=== PATIENT | female | born 1940 | race Caucasian/White ===

== ENCOUNTER 2020-05-03 23:52 | Emergency (ER) | payer MEDICARE ==
[~2020-05-03] VITALS: Ht 162.6 cm; Wt 65.9 kg
[2020-05-04 00:51] LABS: BASOPHILS # (AUTO) 0.1 X10'3 (0-0.2); BASOPHILS % (AUTO) 1.1 % (0-1); CLARITY,URINE SLIGHTLY CLOUDY (Clear); COLOR,URINE YELLOW (Yellow); EOSINOPHILS # (AUTO) 0.1 X10'3 (0-0.9); EOSINOPHILS % (AUTO) 1.8 % (0-6); GLUCOSE, URINE NEGATIVE (Neg); HEMATOCRIT 41.6 % (35.0-45.0); HEMOGLOBIN 14.5 g/dl (12.0-16.0); KETONES,URINE 15 mg/dl (Neg); LEUKOCYTE ESTERASE ,URINE SMALL (Neg); LYMPHOCYTES # (AUTO) 0.8 X10'3 (1.1-4.8); LYMPHOCYTES % (AUTO) 17.2 % (21-51); MEAN CORPUSCULAR HEMOGLOBIN 33.1 PG (27.0-31.0); MEAN CORPUSCULAR HGB CONC 34.8 g/dL (33.0-36.5); MEAN CORPUSCULAR VOLUME 95.3 FL (78-98); MEAN PLATELET VOLUME 9.7 FL (7.4-10.4); MONOCYTES # (AUTO) 0.5 X10'3 (0-0.9); MONOCYTES % (AUTO) 11.4 % (2-12); NEUTROPHILS # (AUTO) 3.1 X10'3 (1.8-7.7); NEUTROPHILS % (AUTO) 68.5 % (42-75); NITRITES, URINE NEGATIVE (Neg); OCCULT BLOOD,URINE NEGATIVE (Neg); PLATELET COUNT 197 X10'3 (140-440); PROTEIN,URINE NEGATIVE (Neg); RED BLOOD COUNT 4.36 X10'6 (4.20-5.60); RED CELL DISTRIBUTION WIDTH 12.3 % (11.5-14.5); WHITE BLOOD COUNT 4.5 X10'3 (4.5-11.0)
[2020-05-04 01:00] LABS: ALANINE AMINOTRANSFERASE 24 U/L (12-78); ALBUMIN 4.2 G/DL (3.4-5.0); ALBUMIN/GLOBULIN RATIO 1.1 (1.1-1.5); ALKALINE PHOSPHATASE 90 IU/L (46-116); ANION GAP 11 (8-16); ASPARTATE AMINO TRANSFERASE 24 U/L (10-37); BILIRUBIN,TOTAL 0.8 MG/DL (0.1-1.0); BLOOD UREA NITROGEN 17 MG/DL (7-18); BUN/CREATININE RATIO 19.3 (6.6-38.0); CALCIUM 9.7 MG/DL (8.5-10.1); CHLORIDE 104 MMOL/L (99-107); CREATININE 0.88 MG/DL (0.40-0.90); GLUCOSE 118 MG/DL (70-104); POTASSIUM 3.6 MMOL/L (3.5-5.1); SODIUM 141 MMOL/L (135-145); TOTAL CARBON DIOXIDE 26.3 MMOL/L (24-32); TOTAL PROTEIN 8.1 G/DL (6.4-8.2); eGFR 62 ML/MIN
--- NOTE | 2020-05-04 01:06 | NUR ---
pedrohbor: [facility] [id number].
[2020-05-04 01:08] LABS: UA COLLECTION TYPE CLN CATCH MIDSTREAM
[2020-05-04 01:12] LABS: AMORPHOUS URATES 1+; BACTERIA,URINE FEW /HPF (Neg); MUCUS STRANDS MODERATE /LPF (Neg); RBC,URINE 0-2 /HPF (0-2); SQUAMOUS EPITHELIAL CELL,UR MODERATE /LPF (FEW)
[2020-05-04] MEDS ORDERED: cephalexin 250mg capsule PO ONE (01:15)
[2020-05-04] MEDS ORDERED: ondansetron 4mg rapidly disintigrating tab PO ONE (01:15)
[2020-05-04 01:46] LABS: ETHANOL < 0.010 GM/DL (0.0-0.010)
--- NOTE | 2020-05-04 02:19 | NUR ---
WENT IN TO ASSESS PATIENT. PT APPEARS ANGRY
--- NOTE | 2020-05-04 02:25 | NUR ---
patient appears to be confused. she appears to live at home, alone and is concerned about her animals being cared for. she keeps repeating that she needs to get home to see her brothers who are in the . sometimes her story changes to her children. pt unable to name the president or year. able to commicate that it is election time, but unable to state candidates. pt mood goes from tearful to angry and back again. pt angry that she has been "experimented on". she expresses anger that she got "a full work up". pt seems to think staff is trying to make money off of her. patient is now emptying purse, stating that she is missing 1000 dollars. as patient is emptying purse, random items including a house phone with the battery hanging out, one loose sock, and multiple papers. pt states that she has a current job but cannot name it. kathy ortiz are sons.
--- NOTE | 2020-05-04 03:47 | NUR ---
Gage vogel in ED - 05/04/20 at 0349 by ROXANNE Spoke to patient's mother Citlaly. she stated that her daughter has a severe drinking problem and needs help.
[2020-05-04 04:46] LABS: URINE AMPHETAMINE SCREEN NEGATIVE (Neg); URINE BARBITUATE SCREEN NEGATIVE (Neg); URINE BENZODIAZEPINES SCREEN NEGATIVE (Neg); URINE CANNABINOID SCREEN NEGATIVE (Neg); URINE COCAINE SCREEN NEGATIVE (Neg); URINE METHADONE SCREEN NEGATIVE (Neg); URINE OPIATE SCREEN NEGATIVE (Neg); URINE PHENCYCLIDINE SCREEN NEGATIVE (Neg)
[2020-05-04 07:00] VITALS: BP 147/74
--- NOTE | 2020-05-04 07:24 | NUR ---
PT IS AWAKE, WAS GIVEN COFFEE AND OJ. PT IS NON CONFRONTATIONAL AND COOPERATIVE. PT IS TALKATIVE, STATING THAT SHE HAD HER SHOES AND MONEY STOLLEN FROM HER; HOWEVER, SHE CHANGES HER STORY EACH TIME FROM $300.00 STOLLEN TO $1,500.00 STOLLEN FROM HER "RECENTY". PT ALSO STATES THAT HER NEW SHOES WERE TAKEN FROM HER WHEN PER THE LANDSCAPE AND YARDWORK LABORER RN STATES THAT SHE HAD ONLY WHAT SHE IS WEARING WITH HER UPON ADMISSION. AWAITING [facility] TO EVALUATE PT THIS AM.
--- NOTE | 2020-05-04 07:55 | NUR ---
SAFETY BREAKFAST DELIVERED TO PT'S BEDSIDE
--- NOTE | 2020-05-04 09:03 | NUR ---
PACKET SENT TO [facility]
--- NOTE | 2020-05-04 09:30 | NUR ---
PT SITTING ON CHAIR IN ROOM. WAITING ON MENTAL HEALTH
[2020-05-04] MEDS ORDERED: cephalexin 500mg capsule PO SCH (10:00)
--- NOTE | 2020-05-04 10:19 | NUR ---
pt has moments of becoming loud and verbally agressive and demanding while pointing her finger in my face. pt is confused about where she is and what is going on and has her own story in her head because she keeps referencing another doctor somewhere and how she had been treated bad and how people have lied to her and then goes from talking about this into talking about actors and movies and how "they can't keep me from watching the movie or put me in the back" and then mentioned lifting a saddle and putting salt under it and watching the horse squirm. pt is breathing well and walking well. no obvious physical issues. sitter at bedside with pt and talking with her and redirecting her. waiting on eval.
[2020-05-04] MEDS ORDERED: CEPH-572 PO (11:10)
== END 2020-05-04 11:17 | disposition home or self-care (01) ==
LOC: ER 23:52
DX: N39.0 Urinary tract infection, site not specified (principal); R41.0 Disorientation, unspecified; Z60.2 Problems related to living alone; Z79.899 Other long term (current) drug therapy
CPT/HCPCS: 36415; 70450; 71045; 80053; 80305; 80320; 81001; 83605; 84145; 84443; 85025; 87088; 93005; 99285

== ENCOUNTER 2020-05-18 17:02 | Emergency (ER) | payer MEDICARE ==
[~2020-05-18] VITALS: Ht 160 cm; Wt 79.5 kg
[2020-05-18 18:17] LABS: BASOPHILS # (AUTO) 0.1 X10'3 (0-0.2); BASOPHILS % (AUTO) 1.2 % (0-1); EOSINOPHILS # (AUTO) 0.1 X10'3 (0-0.9); EOSINOPHILS % (AUTO) 1.6 % (0-6); HEMATOCRIT 39.5 % (35.0-45.0); HEMOGLOBIN 13.4 g/dl (12.0-16.0); LYMPHOCYTES # (AUTO) 0.5 X10'3 (1.1-4.8); LYMPHOCYTES % (AUTO) 11.1 % (21-51); MEAN CORPUSCULAR HEMOGLOBIN 32.2 PG (27.0-31.0); MEAN CORPUSCULAR HGB CONC 33.8 g/dL (33.0-36.5); MEAN CORPUSCULAR VOLUME 95.2 FL (78-98); MEAN PLATELET VOLUME 10.6 FL (7.4-10.4); MONOCYTES # (AUTO) 0.3 X10'3 (0-0.9); MONOCYTES % (AUTO) 6.3 % (2-12); NEUTROPHILS # (AUTO) 3.6 X10'3 (1.8-7.7); NEUTROPHILS % (AUTO) 79.8 % (42-75); PLATELET COUNT 175 X10'3 (140-440); RED BLOOD COUNT 4.15 X10'6 (4.20-5.60); RED CELL DISTRIBUTION WIDTH 12.6 % (11.5-14.5); WHITE BLOOD COUNT 4.5 X10'3 (4.5-11.0)
--- NOTE | 2020-05-18 18:24 | NUR ---
Pt is resting in bed
[2020-05-18 18:30] LABS: ALANINE AMINOTRANSFERASE 25 U/L (12-78); ALBUMIN/GLOBULIN RATIO 1.1 (1.1-1.5); ALKALINE PHOSPHATASE 73 IU/L (46-116); ANION GAP 11 (8-16); ASPARTATE AMINO TRANSFERASE 21 U/L (10-37); BILIRUBIN,TOTAL 0.5 MG/DL (0.1-1.0); BLOOD UREA NITROGEN 7 MG/DL (7-18); BUN/CREATININE RATIO 8.9 (6.6-38.0); CALCIUM 9.3 MG/DL (8.5-10.1); CHLORIDE 101 MMOL/L (99-107); CREATININE 0.79 MG/DL (0.40-0.90); GLUCOSE 93 MG/DL (70-104); POTASSIUM 3.8 MMOL/L (3.5-5.1); SODIUM 137 MMOL/L (135-145); TOTAL CARBON DIOXIDE 25.3 MMOL/L (24-32); TOTAL PROTEIN 7.5 G/DL (6.4-8.2); eGFR 70 ML/MIN
--- NOTE | 2020-05-18 18:34 | NUR ---
Patient shouting in room and intermittently at doorway of bed 16 stating, "Don't trust this hospital" "this hopsital kills people" "I have two babies at home". Security at bedside. Justyna QURESHI aware and gave verbal order for IM geodon 20 mg once now.
[2020-05-18] MEDS ORDERED: ziprasidone IM 20mg inj **IM only IM ONE (18:35)
[2020-05-18 18:42] LABS: ETHANOL < 0.010 GM/DL (0.0-0.010)
[2020-05-18] MEDS ORDERED: LORazepam 2 mg/ml vial IM ONE (19:20)
[2020-05-18] MEDS ORDERED: diphenhydrAMINE 50 mg/ml inj IM ONE (19:20)
--- NOTE | 2020-05-18 19:45 | NUR ---
pt continues to shout and is restless/agitated. pt has already been medicated and remains in restraints. she is shouting "get these fucking things off of me, I have babies at home"
[2020-05-18 20:20] LABS: CLARITY,URINE CLEAR (Clear); COLOR,URINE YELLOW (Yellow); GLUCOSE, URINE NEGATIVE (Neg); KETONES,URINE 15 mg/dl (Neg); LEUKOCYTE ESTERASE ,URINE NEGATIVE (Neg); NITRITES, URINE NEGATIVE (Neg); OCCULT BLOOD,URINE NEGATIVE (Neg); PH,URINE 5.5 (4.8-8.0); PROTEIN,URINE NEGATIVE (Neg); UROBILINOGEN,URINE 0.2 E.U/dL (0.2-1.0)
[2020-05-18] MEDS ORDERED: risperiDONE 2mg tablet PO ONE (20:20)
[2020-05-18 20:21] LABS: UA COLLECTION TYPE STRAIGHT CATH
[2020-05-18 20:27] LABS: URINE AMPHETAMINE SCREEN NEGATIVE (Neg); URINE BARBITUATE SCREEN NEGATIVE (Neg); URINE BENZODIAZEPINES SCREEN NEGATIVE (Neg); URINE CANNABINOID SCREEN NEGATIVE (Neg); URINE COCAINE SCREEN NEGATIVE (Neg); URINE METHADONE SCREEN NEGATIVE (Neg); URINE OPIATE SCREEN NEGATIVE (Neg); URINE PHENCYCLIDINE SCREEN NEGATIVE (Neg)
--- NOTE | 2020-05-18 20:53 | NUR ---
Pt advised that we could try to remove a restraint from one arm. Pt advised she must be respectful to staff and any combative behavior would require the restraint to be reapplied. Pt agrees.
--- NOTE | 2020-05-18 21:18 | NUR ---
PACKET FAXED TO [facility]
--- NOTE | 2020-05-18 22:57 | NUR ---
PT YELLING IN ROOM STATING THAT SHE NEEDS TO GO HOME TO GET TO HER BABY. PT REORIENTED TO CURRENT PLACE AND SITUATION, EXPLAINING THAT SHE IS IN THE ED, AND THAT SHE WASN'T SAFE AT HOME AND NEEDS TO STAY WITH US TO MAKE SURE SHE IS PROPERLY CARED FOR. PT ENCOURAGED TO REST IN BED.
--- NOTE | 2020-05-18 23:30 | NUR ---
pt removed from restraints. offered meal tray but pt declines.
--- NOTE | 2020-05-19 00:52 | NUR ---
PT RESTING IN BED. NO S/S OF DISTRESS OR PAIN. PT RESTING ON LEFT SIDE WITH RR OF 15. NO COMPLAINTS OR NEEDS AT THIS TIME.
--- NOTE | 2020-05-19 02:06 | NUR ---
Pt resting in bed appearing to be asleep. Rr 16, no s/s of physical complaints.
--- NOTE | 2020-05-19 03:43 | NUR ---
pt assisted to restroom and safely helped back to bed. pt agreeable and mostly oriented with a few confused statements
--- NOTE | 2020-05-19 05:43 | NUR ---
pt resting in bed with no s/s distress. rr 16
--- NOTE | 2020-05-19 06:30 | NUR ---
TAKEN OVER FROM NIGHT NURSE ,PT SLEEPING IN RGT LATERAL POSITION ,WILL CONT TO MONITOR.ROOM FRONT OF NURSES STATION TO KEEP AN EYE ON PT .
--- NOTE | 2020-05-19 07:41 | NUR ---
PT IS NOT ON ANY RESTRIAN SINCE TAKEN REPORT FROM NIGHT DEBBY SHELLEY.PT RESTING QUIETLY IN SUPINE POSITION .RR WNL.WILL CONT TO MONITOR.
--- NOTE | 2020-05-19 08:17 | NUR ---
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
[2020-05-19 09:11] VITALS: BP 127/63
--- NOTE | 2020-05-19 09:24 | NUR ---
[facility] ALREADY PAGED SOCIAL SERVICE TO CONTACT PT FAMILY FOR D/C TRASPORTATION.
--- NOTE | 2020-05-19 09:55 | NUR ---
RECEVIED CALL FROM [employer] SAFETY MANAGER WANT TO KNOW IF FAMILY IS AWARE THAT PT IS HERE .NOTIFIED THAT I WAS READING TRIAGE NOTES THAT PT FAMILY MEMBER CALLED [employer] DE[employer] DANIEL AM SURE THEY WILL BE AWARE.
--- NOTE | 2020-05-19 10:05 | NUR ---
[facility] MESSAGE FOR TIME AT [id number] FOR TRANSPORATION, CALL US BACK ON [phone].
[2020-05-19] MEDS ORDERED: quetiapine 100mg tablet PO ONE (10:20)
--- NOTE | 2020-05-19 11:38 | NUR ---
PT SAT ON HER KNEES AND DENIES TO GET UP ,ASKED HELP FROM EMS PERSONNEL STANDING IN NURSES STATION AND PLACED THE PT ON THE BED .INFORMED TAHT WE ARE WAITING FOR [facility] TO PCK HER UP.
--- NOTE | 2020-05-19 12:17 | NUR ---
MADE MULTIPLE ATTEMPT TO REACH TO [facility] TO GET TRANSPORTATION ETA,NOT RECEVIED CALL BACK .CHARGE NURSE SERGEY GUARDADO AWARE.PT NOW RESTING IN BED HAD SEQUERAL 200 MG BEFORE ,PT TALKING TO HERSELF .WAITING ON RIDE .
--- NOTE | 2020-05-19 12:36 | NUR ---
SERGEY CHARGE NURSE CALLED [facility] AND T MESSAGE FOR TRANSPORTATION ETA .
== END 2020-05-19 13:30 | disposition home or self-care (01) ==
LOC: ER 17:02
DX: F29 Unspecified psychosis not due to a substance or known physiological condition (principal); E07.9 Disorder of thyroid, unspecified; Z60.2 Problems related to living alone
CPT/HCPCS: 36415; 71045; 80053; 80305; 80320; 81003; 84145; 84443; 85025; 96372; 99285; J1200; J2060; J3486

== ENCOUNTER 2020-07-11 15:24 | Emergency (ER) | payer MEDICARE, OTHER ==
[~2020-07-11] VITALS: Ht 160 cm; Wt 72.1 kg
--- NOTE | 2020-07-11 16:33 | NUR ---
Pt ambulated around the square without assistance and was steady the entire time.
[2020-07-11 17:00] VITALS: BP 179/87
[2020-07-11 17:02] LABS: CLARITY,URINE SLIGHTLY CLOUDY (Clear); COLOR,URINE YELLOW (Yellow); GLUCOSE, URINE NEGATIVE (Neg); KETONES,URINE 15 mg/dl (Neg); LEUKOCYTE ESTERASE ,URINE LARGE (Neg); NITRITES, URINE NEGATIVE (Neg); OCCULT BLOOD,URINE TRACE-LYSED (Neg); PROTEIN,URINE NEGATIVE (Neg); UROBILINOGEN,URINE 0.2 E.U/dL (0.2-1.0)
[2020-07-11 17:07] LABS: UA COLLECTION TYPE OTHER
[2020-07-11 17:08] LABS: BACTERIA,URINE FEW /HPF (Neg); RBC,URINE 0-2 /HPF (0-2); WBC,URINE 30-50 /HPF (0-4)
[2020-07-11 17:09] LABS: MUCUS STRANDS FEW /LPF (Neg); RENAL CELLS, URINE MODERATE /HPF; SQUAMOUS EPITHELIAL CELL,UR MODERATE /LPF (FEW); TRANSITIONAL EPI CELLS,URINE FEW /HPF
[2020-07-11] MEDS ORDERED: CEFD300C3 PO (20:11)
== END 2020-07-11 17:10 | disposition home or self-care (01) ==
LOC: ER 15:24
DX: F03.90 Unspecified dementia, unspecified severity, without behavioral disturbance, psychotic disturbance, mood disturbance, and anxiety (principal); N39.0 Urinary tract infection, site not specified; M25.562 Pain in left knee; M25.561 Pain in right knee; I10 Essential (primary) hypertension; Z60.2 Problems related to living alone; W18.39XA Other fall on same level, initial encounter; Y93.89 Activity, other specified; Y92.89 Other specified places as the place of occurrence of the external cause; Y99.8 Other external cause status
CPT/HCPCS: 71045; 81001; 87088; 93005; 99285

== ENCOUNTER 2020-08-05 16:21 | Emergency (ER) | payer MEDICARE, OTHER ==
[~2020-08-05] VITALS: Ht 170.2 cm; Wt 70.0 kg
[~2020-08-05 16:21] MED LIST: CEFD300C3 PO
[2020-08-05 16:36] VITALS: BP 141/63
[2020-08-05 17:38] LABS: COLOR,URINE YELLOW (Yellow); GLUCOSE, URINE NEGATIVE (Neg); KETONES,URINE NEGATIVE (Neg); LEUKOCYTE ESTERASE ,URINE SMALL (Neg); NITRITES, URINE NEGATIVE (Neg); OCCULT BLOOD,URINE NEGATIVE (Neg); PROTEIN,URINE NEGATIVE (Neg); UROBILINOGEN,URINE 0.2 E.U/dL (0.2-1.0)
[2020-08-05 17:45] LABS: CLARITY,URINE SLIGHTLY CLOUDY (Clear); UA COLLECTION TYPE CLN CATCH MIDSTREAM
[2020-08-05 17:46] LABS: RBC,URINE NONE SEEN /HPF (0-2)
[2020-08-05 17:47] LABS: BACTERIA,URINE 1+ /HPF (Neg); MUCUS STRANDS MODERATE /LPF (Neg); SQUAMOUS EPITHELIAL CELL,UR FEW /LPF (FEW); WBC CLUMPS,URINE FEW /HPF (NEGATIVE)
[2020-08-05] MEDS ORDERED: CEPH250T PO (18:19)
--- NOTE | 2020-08-05 18:44 | NUR ---
CALLED REPORT TO GONZALEZ RAMIREZ. ALL QUESTIONS FROM RECEIVING RN AND STAFF ANSWERED. PT WILL BE GOING BACK TO FACILITY VIA [facility]
== END 2020-08-05 19:32 ==
LOC: ER 16:22
DX: N39.0 Urinary tract infection, site not specified (principal); F03.90 Unspecified dementia, unspecified severity, without behavioral disturbance, psychotic disturbance, mood disturbance, and anxiety; I10 Essential (primary) hypertension; Z60.2 Problems related to living alone; Z79.2 Long term (current) use of antibiotics
CPT/HCPCS: 81001; 87088; 87186; 99284

== ENCOUNTER 2020-11-06 21:21 | Emergency (ER) | payer MEDICARE, OTHER ==
[~2020-11-06] VITALS: Ht 154.9 cm; Wt 54.0 kg
--- NOTE | 2020-11-06 21:35 | NUR ---
pt difficult to arrouse. to shaking. pt AAOx2. denies pain
--- NOTE | 2020-11-07 00:09 | NUR ---
pt to be d/c'd. arranged transportation back to intermediate. eta 1 hour
[2020-11-07 00:14] VITALS: BP 119/71
--- NOTE | 2020-11-07 01:25 | NUR ---
[facility] here to transport pt back to long-term. pt leaves with all personal items in wheelchair
== END 2020-11-07 01:26 | disposition home or self-care (01) ==
LOC: ER 21:21
DX: F03.90 Unspecified dementia, unspecified severity, without behavioral disturbance, psychotic disturbance, mood disturbance, and anxiety (principal); I10 Essential (primary) hypertension; Z60.2 Problems related to living alone; W19.XXXA Unspecified fall, initial encounter; Y93.89 Activity, other specified; Y92.89 Other specified places as the place of occurrence of the external cause; Y99.8 Other external cause status
CPT/HCPCS: 70450; 72125; 99285

== ENCOUNTER 2021-04-27 19:43 | Emergency (ER) | payer MEDICARE, OTHER ==
[~2021-04-27] VITALS: Ht 167.6 cm; Wt 70.5 kg
[2021-04-27 21:16] VITALS: BP 128/54
== END 2021-04-27 22:29 ==
LOC: ER 19:43
DX: M54.2 Cervicalgia (principal); R51.9 Headache, unspecified; F03.90 Unspecified dementia, unspecified severity, without behavioral disturbance, psychotic disturbance, mood disturbance, and anxiety; I10 Essential (primary) hypertension; Z60.2 Problems related to living alone; W19.XXXA Unspecified fall, initial encounter; Y93.89 Activity, other specified; Y92.89 Other specified places as the place of occurrence of the external cause; Y99.8 Other external cause status
CPT/HCPCS: 70450; 72125; 99285

== ENCOUNTER 2021-09-09 13:44 | Emergency (ER) | payer MEDICARE, OTHER ==
[~2021-09-09] VITALS: Ht 165.1 cm; Wt 77.3 kg
[2021-09-09 13:52] VITALS: BP 152/69
[2021-09-09] MEDS ORDERED: normal saline 1000ML IV soln IVB ONE (14:05)
[2021-09-09] MEDS ORDERED: LIDOcaine 2% 10ml TOPICAL JELLY (Urojet) TP ONE (14:05)
[2021-09-09 14:36] LABS: BASOPHILS % (AUTO) 0.7 % (0-1); EOSINOPHILS % (AUTO) 1.3 % (0-6); HEMATOCRIT 32.4 % (35.0-45.0); HEMOGLOBIN 10.8 g/dl (12.0-16.0); LYMPHOCYTES # (AUTO) 0.8 X10'3 (1.1-4.8); LYMPHOCYTES % (AUTO) 20.3 % (21-51); MEAN CORPUSCULAR HEMOGLOBIN 29.9 PG (27.0-31.0); MEAN CORPUSCULAR HGB CONC 33.4 g/dL (33.0-36.5); MEAN CORPUSCULAR VOLUME 89.4 FL (78-98); MEAN PLATELET VOLUME 9.3 FL (7.4-10.4); MONOCYTES # (AUTO) 0.3 X10'3 (0-0.9); MONOCYTES % (AUTO) 8.8 % (2-12); NEUTROPHILS # (AUTO) 2.7 X10'3 (1.8-7.7); NEUTROPHILS % (AUTO) 68.9 % (42-75); PLATELET COUNT 179 X10'3 (140-440); RED BLOOD COUNT 3.63 X10'6 (4.20-5.60); RED CELL DISTRIBUTION WIDTH 13.5 % (11.5-14.5); WHITE BLOOD COUNT 3.9 X10'3 (4.5-11.0)
[2021-09-09 14:53] LABS: LACTIC SEPSIS 0.9 MMOL/L (0.4-2.0)
[2021-09-09 14:59] LABS: ALANINE AMINOTRANSFERASE 16 U/L (12-78); ALBUMIN/GLOBULIN RATIO 0.9 (1.1-1.5); ALKALINE PHOSPHATASE 72 IU/L (46-116); ANION GAP 12 (8-16); ASPARTATE AMINO TRANSFERASE 23 U/L (10-37); BILIRUBIN,TOTAL 0.4 MG/DL (0.1-1.0); BLOOD UREA NITROGEN 10 MG/DL (7-18); BUN/CREATININE RATIO 13.5 (6.6-38.0); CALCIUM 8.5 MG/DL (8.5-10.1); CHLORIDE 106 MMOL/L (99-107); CREATININE 0.74 MG/DL (0.40-0.90); GLUCOSE 111 MG/DL (70-104); POTASSIUM 3.8 MMOL/L (3.5-5.1); SODIUM 143 MMOL/L (135-145); TOTAL CARBON DIOXIDE 25.3 MMOL/L (24-32); TOTAL PROTEIN 6.5 G/DL (6.4-8.2); eGFR 75 ML/MIN
[2021-09-09 15:00] LABS: ETHANOL < 0.010 GM/DL (0.0-0.010)
[2021-09-09 15:04] LABS: AMMONIA < 10 UMOL/L (11-32)
[2021-09-09 15:16] LABS: CLARITY,URINE CLEAR (Clear); COLOR,URINE YELLOW (Yellow); GLUCOSE, URINE NEGATIVE (Neg); KETONES,URINE NEGATIVE (Neg); LEUKOCYTE ESTERASE ,URINE NEGATIVE (Neg); NITRITES, URINE NEGATIVE (Neg); OCCULT BLOOD,URINE NEGATIVE (Neg); PH,URINE 8.5 (4.8-8.0); PROTEIN,URINE NEGATIVE (Neg)
[2021-09-09 15:17] LABS: UA COLLECTION TYPE FOLEY CATH
[2021-09-09 15:28] LABS: URINE AMPHETAMINE SCREEN NEGATIVE (Neg); URINE BARBITUATE SCREEN NEGATIVE (Neg); URINE BENZODIAZEPINES SCREEN NEGATIVE (Neg); URINE CANNABINOID SCREEN POSITIVE (Neg); URINE COCAINE SCREEN NEGATIVE (Neg); URINE METHADONE SCREEN NEGATIVE (Neg); URINE OPIATE SCREEN NEGATIVE (Neg); URINE PHENCYCLIDINE SCREEN NEGATIVE (Neg)
--- NOTE | 2021-09-09 17:44 | NUR ---
reprot given to topher allen at [place]
== END 2021-09-09 17:45 | disposition home or self-care (01) ==
LOC: ER 13:44
DX: R55 Syncope and collapse (principal); I95.9 Hypotension, unspecified; R41.82 Altered mental status, unspecified; R56.9 Unspecified convulsions; I10 Essential (primary) hypertension; Z60.2 Problems related to living alone
CPT/HCPCS: 36415; 51702; 70450; 71045; 80053; 80305; 80320; 81003; 82140; 83605; 84484; 85025; 87040; 96360; 99285; J7030; 93005